=== PATIENT | female | born 1975 | race Caucasian/White ===

== ENCOUNTER 2017-05-30 04:53 | Emergency (ER) | payer SELFPAY ==
[~2017-05-30] VITALS: Ht 165.1 cm; Wt 84.4 kg
--- NOTE | 2017-05-30 05:05 | NUR ---
TO BED 7 A 41 YO FEMALE PATIENT BB FAM[facility]; FEVER, BODY ACHES, COUGH, LUIS X 2 DAYS. VSS. NAD NOTED. VSS. NONDIAPHORETIC. COMFORT MEASURES RENDERED.
--- NOTE | 2017-05-30 05:12 | NUR ---
DR TAPIA AT BEDSIDE TO EVALUATE PATIENT.
--- NOTE | 2017-05-30 05:49 | NUR ---
Patient discharged to home in stable condition. Written and verbal after care instructions given. Patient verbalizes understanding of instruction. Patient is ambulatory with steady gait, accompanied by . Nad on dc. vss. No further complaints.
[2017-05-30 05:50] VITALS: BP 147/80
== END 2017-05-30 05:50 | disposition home or self-care (01) ==
LOC: ER 04:56
DX: R05 Cough (principal)
CPT/HCPCS: 71010; 99283; A4606; Z7610